=== PATIENT | male | born 1970 | race Caucasian/White ===

== ENCOUNTER → 2017-02-28 | Outpatient (CLI) | payer BC ==
[2017-02-28 12:37] LABS: HEMOGLOBIN 17.8 g/dL (14.1-18.0); LYMPH % 16.5 % (10-50)
[2017-02-28 17:51] LABS: BUN 8 mg/dL (7-18)
[2017-02-28 18:22] LABS: GFR (ESTIMATED) 92 ML/MIN (>60)
--- NOTE | 2017-02-28 21:12 | RADIOLOGY REPORT PS360 ---
CT SINUS (MAX-FACIAL W/O CONT) CLINICAL INDICATION: [] DEVIATED NASAL SEPTUM, SINUSITIS, ALLERGIC RHINITIS ORDERING PHYSICIAN: Redd Pearson MD PATIENT AGE: 46 years COMPARISON: None TECHNIQUE:Axial, sagittal, and coronal images are generated and reviewed without contrast FINDINGS: There is mild mucosal thickening along the inferior wall the left maxillary sinus measuring up to 6 mm. No sinus air-fluid level is evident. The remaining paranasal sinuses are unremarkable. There is moderate rightward nasal septal deviation anteriorly with moderate to severe narrowing of the right nasal canal. The ostiomeatal complexes are patent. The TMJs and orbits have an unremarkable appearance. There is decreased aeration of the right mastoid sinus with underlying sclerosis IMPRESSION: 1. Moderate rightward nasal septal deviation with severe narrowing of the right nasal canal. 2. Mild left maxillary sinus disease. 3. Decrease aeration of the right mastoid sinus with sclerosis which could be due to chronic infection
== END ==
LOC: RAD 11:20
PROVIDERS: Otolaryngology
DX: J34.2 Deviated nasal septum (principal); J32.0 Chronic maxillary sinusitis; J30.9 Allergic rhinitis, unspecified; H69.91 Unspecified Eustachian tube disorder, right ear; Z01.818 Encounter for other preprocedural examination

== ENCOUNTER 2017-03-17 07:01 | Day surgery (SDC) | payer BC ==
[~2017-03-17] VITALS: Ht 177.8 cm; Wt 70.3 kg
--- NOTE | 2017-03-17 10:27 | Anesthesia Record ---
Anesthesia Record Part II Discharge time: 1055 Destination: Same day surgery PACU nurse assessment review? Yes Patient is: Awake, Stable Anesthesia complications? No at 1026
--- NOTE | 2017-03-17 10:27 | Anesthesia Record ---
Anesthesia Record Part I Total IV fluids: 1200 EBL (ml): 20 Urine Output: 0 B/P: 150/99 % SaO2: 97 Pulse: 71 Resps: 12 Temp: 97.5 Patient is: Awake, Stable Stable to PACU at: 1025 at 1026
--- NOTE | 2017-03-17 14:13 | Operative Note ---
Other ENT Procedure Date of Procedure: 03/17/17 Time of Procedure: 829 Procedure performed: 1. Nasal septoplasty 2. Functional endoscopic sinus surgery with bilateral intranasal maxillary antrostomies with removal of tissue Pre-op diagnosis: 1. Deviated nasal septum 2. Chronic bilateral maxillary sinusitis Post-op diagnosis: same Surgeon: Rded Pearson Anesthesia: general Pre-procedure antibiotics: Ancef 1 gm Pre-procedure steroid: Decadron 12 mg Description of procedure: With patient under general anesthesia the face was prepped and draped. The eyes were protected with Steri-Strips. The nose was decongested with topical cocaine and 5 mL of 2 percent lidocaine with epi were injected into the nasal antral mccoy. There was a moderately severe deviation of the nasal septum to the RIGHT with 90 percent nasal airflow blockage. A LEFT hemitransfixion incision was made and the mucoperiosteum and mucoperichondrial was incised. Flaps were elevated and the quadrangular cartilage was trimmed inferiorly and posteriorly, a vomerine spur was removed, maxillary crest was straightened and the perpendicular plate of the ethmoid was straightened. Surgicel Snow was placed between the flaps and transfixion and hemitransfixion chromic sutures were placed to hold septum in the midline. Using endoscopic sinus surgical technique scopes and instruments, The RIGHT intranasal maxillary antrostomy was done. Mucosal thickening was removed from the RIGHT maxillary sinus and the RIGHT maxillary sinus was irrigated until all the returns were clear. The RIGHT ostiomeatal complex was opened. Similarly LEFT intranasal maxillary antrostomy was done. Mucosal thickening was removed and submitted. And the sinus was irrigated until all of the returns were clear. Blood loss for all the procedure was less than 10 mL and completely stopped. Cortisporin ointment was placed in the nasal vestibules, a drip pad dressing was applied and the patient was sent to recovery in good general condition. EBL (ml): 3 at 1412
[2017-03-17 15:14] VITALS: BP 140/101
== END 2017-03-17 11:50 | disposition home or self-care (01) ==
LOC: SDC 07:01
PROVIDERS: Otolaryngology
PROC: 099R8ZZ Drainage of Left Maxillary Sinus, Via Natural or Artificial Opening Endoscopic (ICD-10-PCS; 2017-03-17)
PROC: 099Q8ZZ Drainage of Right Maxillary Sinus, Via Natural or Artificial Opening Endoscopic (ICD-10-PCS; 2017-03-17)
PROC: 09BM0ZZ Excision of Nasal Septum, Open Approach (ICD-10-PCS; principal; 2017-03-17 08:30)
DX: J34.2 Deviated nasal septum (principal); J32.0 Chronic maxillary sinusitis
CPT/HCPCS: J2405; J2710